=== PATIENT | male | born 1985 | race Caucasian/White ===

== ENCOUNTER 2017-04-23 23:09 | Emergency (ER) | payer BC ==
[~2017-04-23] VITALS: Ht 182.9 cm; Wt 96.9 kg
[2017-04-23 23:11] VITALS: TEMP 36.6; Ht 182.9 cm; Wt 96.9 kg
[2017-04-23] MEDS ORDERED: LIDOCAINE HCL 2% VISC SOLN 20 ML UDC PO STA (23:18)
[2017-04-23] MEDS ORDERED: ALUMINUM/MAGNESIUM SUSP 30 ML UDC PO STA (23:18)
[2017-04-23] MEDS ORDERED: ONDANSETRON INJ 2 MG/ML 2 ML VIAL IV STA (23:18)
[2017-04-23 23:44] LABS: BASO % 0.5 %; BASO ABS # 0.04 K/uL (0-0.2); EOS % 4.8 %; EOS ABS # 0.42 K/uL (0-0.5); HEMATOCRIT 41.6 % (42-52); HEMOGLOBIN 15.1 g/dL (14.0-18.0); IG# 0.02 K/uL (0.00-0.02); LYMPH % 34.7 %; LYMPH ABS # 3.01 K/uL (1.2-3.4); MEAN CELL VOLUME 86.1 fL (80-100); MEAN CORPUSCULAR HEMOGLOBIN 31.3 pg (25-34); MEAN CORPUSCULAR HGB CONC 36.3 g/dl (32-36); MONO % 10.4 %; NEUT % 49.4 %; NEUT ABS # 4.29 K/uL (1.4-6.5); PLATELET COUNT 285 K/uL (130-400); RED CELL DISTRIBUTION WIDTH CV 11.8 % (11.5-14.5); RED CELL DISTRIBUTION WIDTH SD 36.8 fL (36.4-46.3); WHITE BLOOD COUNT 8.68 K/uL (4.8-10.8)
[2017-04-24 00:02] LABS: ALBUMIN 4.2 gm/dl (3.4-5.0); ALT/SGPT 31 U/L (12-78); AST/SGOT 21 U/L (15-37); BLOOD UREA NITROGEN 15 mg/dl (7-18); CALCIUM 8.7 mg/dl (8.5-10.1); CARBON DIOXIDE 26 mmol/L (21-32); CREATININE 1.09 mg/dl (0.60-1.40); GLUCOSE 100 mg/dl (70-99); LIPASE 125 U/L (73-393); POTASSIUM 3.4 mmol/L (3.5-5.1); SODIUM 140 mmol/L (136-145)
[2017-04-24 00:04] LABS: ALKALINE PHOSPHATASE 58 U/L (45-117); TOTAL PROTEIN 8.1 gm/dl (6.4-8.2)
[2017-04-24] MEDS ORDERED: PANTOprazole SOD 40 MG TAB PO STA (01:07)
[2017-04-24] MEDS ORDERED: PANT40TA PO (01:08)
[2017-04-24 01:20] VITALS: BP 134/78; PULSE 85; O2SAT 97
--- NOTE | 2017-04-24 03:46 | EMERGENCY ROOM VISIT NOTE ---
History First contact with patient: 23:15 Chief Complaint: ABDOMINAL PAIN Stated Complaint: ABDOMINAL PAIN Nursing Triage Summary: RUQ non-radiating pressure/discomfort since this morning with associated nausea. History of Present Illness The patient is a 31 year old male who presents to the Emergency Room with complaints of epigastric or right upper quadrant discomfort for the past day described as discomfort, ranging in severity 4 out of 10. Nothing makes it better or worse. It does not radiate. Patient denies chest pain, dyspnea, fever, chills, vomiting, diarrhea, back pain, urinary symptoms, flank pain, testicular pain, penile pain. No injury to the area. No similar symptoms in the past. Review of Systems An 10 system review of systems was completed with positives and pertinent negatives listed in the HPI. Past Medical/Surgical History None Social History Smoking Status: Never Smoker Smokeless Tobacco Use: No Alcohol Use: occasionally Drug Use: none Marital Status: Housing Status: lives with family Occupation Status: employed Current/Historical Medications Scheduled Pantoprazole (Protonix), 40 MG PO DAILY Physical Exam Vital Signs Date Time Temp Pulse Resp B/P (MAP) Pulse Ox O2 Delivery O2 Flow Rate FiO2 04/24/17 01:20 85 17 134/78 97 04/24/17 00:30 71 04/23/17 23:11 36.6 85 20 151/90 99 Room Air Physical Exam VITALS: Vitals are noted on the nurse's note and reviewed by myself. Vital signs stable. GENERAL: Pleasant male, in no acute distress, nondiaphoretic, well-developed well-nourished. SKIN: Capillary reflex less than 2 seconds. HEENT: Normocephalic. PERRLA. EOMI. Nares patent. Mucous membranes moist. Neck is supple without nuchal rigidity. HEART: Regular rate and rhythm without murmurs gallops or rubs. LUNGS: Clear to auscultation bilaterally without wheezes, rales or rhonchi. No retractions or accessory muscle use. ABDOMEN: Positive bowel sounds x 4. Normal tympanic percussion. Soft, tender to palpation epigastric region, no CVA tenderness, without masses or organomegaly. Andre sign negative. No guarding or rebound tenderness. MUSCULOSKELETAL: No gross musculoskeletal defects. No pedal edema. No calf tenderness. NEURO: Patient was alert and oriented to person place and time. Normal sensation to light and sharp touch. No focal neurological deficits. Medical Decision & Procedures Laboratory Results 04/23/17 23:32 Red Blood Count 4.83, Mean Corpuscular Volume 86.1, Mean Corpuscular Hemoglobin 31.3, Mean Corpuscular Hemoglobin Concent 36.3, Mean Platelet Volume 9.0, Neutrophils (%) (Auto) 49.4, Lymphocytes (%) (Auto) 34.7, Monocytes (%) (Auto) 10.4, Eosinophils (%) (Auto) 4.8, Basophils (%) (Auto) 0.5, Neutrophils # (Auto ) 4.29, Lymphocytes # (Auto) 3.01, Monocytes # (Auto) 0.90, Eosinophils # (Auto ) 0.42, Basophils # (Auto) 0.04 04/23/17 23:32 Test 04/23/17 23:32 White Blood Count 8.68 K/uL (4.8-10.8) Red Blood Count 4.83 M/uL (4.7-6.1) Hemoglobin 15.1 g/dL (14.0-18.0) Hematocrit 41.6 % (42-52) Mean Corpuscular Volume 86.1 fL (80-100) Mean Corpuscular Hemoglobin 31.3 pg (25-34) Mean Corpuscular Hemoglobin Concent 36.3 g/dl (32-36) Platelet Count 285 K/uL (130-400) Mean Platelet Volume 9.0 fL (7.4-10.4) Neutrophils (%) (Auto) 49.4 % Lymphocytes (%) (Auto) 34.7 % Monocytes (%) (Auto) 10.4 % Eosinophils (%) (Auto) 4.8 % Basophils (%) (Auto) 0.5 % Neutrophils # (Auto) 4.29 K/uL (1.4-6.5) Lymphocytes # (Auto) 3.01 K/uL (1.2-3.4) Monocytes # (Auto) 0.90 K/uL (0.11-0.59) Eosinophils # (Auto) 0.42 K/uL (0-0.5) Basophils # (Auto) 0.04 K/uL (0-0.2) RDW Standard Deviation 36.8 fL (36.4-46.3) RDW Coefficient of Variation 11.8 % (11.5-14.5) Immature Granulocyte % (Auto) 0.2 % Immature Granulocyte # (Auto) 0.02 K/uL (0.00-0.02) Anion Gap 7.0 mmol/L (3-11) Est Creatinine Clear Calc Drug Dose 116.3 ml/min Estimated GFR () 102.8 Estimated GFR (Non- 88.7 BUN/Creatinine Ratio 14.2 (10-20) Calcium Level 8.7 mg/dl (8.5-10.1) Total Bilirubin 0.4 mg/dl (0.2-1) Direct Bilirubin < 0.1 mg/dl (0-0.2) Aspartate Amino Transf (AST/SGOT) 21 U/L (15-37) Alanine Aminotransferase (ALT/SGPT) 31 U/L (12-78) Alkaline Phosphatase 58 U/L (45-117) Total Protein 8.1 gm/dl (6.4-8.2) Albumin 4.2 gm/dl (3.4-5.0) Lipase 125 U/L (73-393) Medications Administered Medications (Trade) Dose Ordered Sig/Aime Route Start Time Stop Time Status Last Admin Dose Admin Lidocaine HCl (Viscous Lidocaine 2% Soln) 10 ml NOW STAT PO 04/23/17 23:18 04/23/17 23:22 DC 04/23/17 23:38 10 ML Al Hydroxide/Mg Hydroxide (Maalox Susp) 30 ml NOW STAT PO 04/23/17 23:18 04/23/17 23:22 DC 04/23/17 23:38 30 ML Ondansetron HCl (Zofran Inj) 4 mg NOW STAT IV 04/23/17 23:18 04/23/17 23:23 DC 04/23/17 23:35 4 MG Pantoprazole Sodium (Protonix Tab) 40 mg NOW STAT PO 04/24/17 01:07 04/24/17 01:08 DC 04/24/17 01:10 40 MG ED Course Prior records/ancillary studies reviewed. Triage Nursing notes reviewed. The patient's history was concerning for abdominal pain. Differential diagnosis: Etiologies such as appendicitis, diverticulitis, PUD, biliary pathology, UTI, pancreatitis, obstruction, mesenteric ischemia, aortic pathology, infections, inflammatory bowel disease, renal colic, as well as others were entertained. Physical examination findings: As above. ER treatment provided: GI cocktail On reassessment the patient felt better. Diagnostics interpreted by me: The labs revealed no worrisome leukocytosis or electrolyte abnormality Imaging studies: Ultrasound negative for acute cholecystitis per radiology Exam and history seem consistent with reflux. Patient felt much better after being medicated as above. He did not have an acute abdomen on exam. Negative ultrasound. Stable H&H. No leukocytosis. He was advised to take medications as directed and to avoid acidic foods. He is advised if symptoms persist to follow-up with family care or GI for further evaluation treatment or here in the ER sooner for abdominal pain, fevers, vomiting, worsening signs or symptoms or as needed. By the evaluation outlined above emergent etiologies such as appendicitis, diverticulitis, PUD, biliary pathology, UTI, pancreatitis, obstruction, mesenteric ischemia, aortic pathology, infections, inflammatory bowel disease, renal colic, as well as others were deemed relatively unlikely. The pt informed about the findings as listed above. All questions were answered and pleased with the treatment. Return instructions were outlined and the patient was discharged in stable condition. Outpatient prescription management: Protonix Referral: The patient was referred back to their primary care physician for follow-up in 2 to 3 days for a recheck of the current condition. Case reviewed with my attending Medical Decision As above Medication Reconcilliation Current Medication List: was personally reviewed by me Blood Pressure Screening Patient's blood pressure: Normal blood pressure Impression Primary Impression: Epigastric abdominal pain Departure Information Dispostion Home / Self-Care Condition GOOD Prescriptions Pantoprazole (Protonix) 40 Mg Tab 40 MG PO DAILY for 14 Days, #14 TAB Prov: Karen Rutledge ., GEORGE 04/24/17 Forms Call Back Authorization, HOME CARE DOCUMENTATION FORM, IMPORTANT VISIT INFORMATION Patient Instructions GERD, [facility] Additional Instructions Protonix 40 m tablet daily for next 2 weeks. Take this on an empty stomach. Try Maalox or Zantac for breakthrough symptoms for reflux. Avoid large meals. Avoid acidic foods. Rest and drink plenty of fluids as tolerated. Continue current medications. Avoid strenuous activities and anything that worsens your pain. Resume normal activities once your symptoms resolve. Return to the ER immediately for worsening or persistent chest pain, abdominal pain, black or blood in your stools, vomiting, fevers, chest pains, difficulty breathing, worsening of your condition, or as needed. Follow up with your primary physician in 2-3 days for a recheck of your current condition.
--- NOTE | 2017-04-24 07:04 | DIAGNOSTIC IMAGING REPORT ---
ULTRASOUND RIGHT UPPER QUADRANT ABDOMEN CLINICAL HISTORY: Right upper quadrant abdominal pain. COMPARISON STUDY: No priors. TECHNIQUE: Real-time, grayscale, and color flow sonography of the right upper quadrant of the abdomen was performed. Images are reviewed in the transverse and longitudinal planes. FINDINGS: Liver: The liver is normal in size and demonstrates heterogeneously increased echotexture suggesting steatosis. There is no intrahepatic biliary ductal dilatation. The main portal vein is patent. Gallbladder: The gallbladder is normal in appearance. No gallstones are identified. There is no gallbladder wall thickening or pericholecystic fluid. A sonographic Andre's sign is reportedly absent. The common bile duct measures up to 0.2 cm in diameter. Pancreas: Visualized portions of the pancreatic head and body are normal in appearance. The splenic vein is patent. Right kidney: Survey images of the right kidney demonstrate normal size and echotexture. There is no hydronephrosis. Ascites: None. IMPRESSION: 1. No acute sonographic abnormality is identified in the right upper quadrant. No gallstones are seen. 2. Findings suggest hepatic steatosis. Electronically signed by: Nagi Dolan M.D. 04/24/2017 7:02 AM Dictated Date/Time: 04/24/2017 7:01 AM
== END 2017-04-24 01:22 | disposition home or self-care (01) ==
LOC: C.EDB 23:12
DX: R10.13 Epigastric pain (principal)